=== PATIENT | male | born 1935 | race Caucasian/White ===

== ENCOUNTER 2020-12-04 17:41 | Inpatient (IN) ==
[2020-12-04 19:35] LABS: Basophils # (auto) 0.02 K/uL (0-0.2); Basophils % (auto) 0.2 %; Eosinophils # (auto) 0.19 K/uL (0-0.5); Hemoglobin 12.8 g/dL (14.0-18.0); Immature Granulocytes # (auto) 0.04 K/uL (0.00-0.02); Immature Granulocytes % (auto) 0.4 %; Lymphocytes # (auto) 1.78 K/uL (1.2-3.4); Lymphocytes % (auto) 18.9 %; Mean Corpuscular Hemoglobin 30.5 pg (25-34); Mean Corpuscular Hgb Conc 32.8 g/dL (32-36); Mean Corpuscular Volume 92.9 fL (80-100); Mean Platelet Volume 11.1 fL (7.4-10.4); Monocytes # (auto) 0.88 K/uL (0.11-0.59); Monocytes % (auto) 9.4 %; Neutrophils # (auto) 6.49 K/uL (1.4-6.5); Neutrophils % (auto) 69.1 %; Platelet Count 205 K/uL (130-400); RDW Coefficient of Variation 13.7 % (11.5-14.5)
[2020-12-04 19:46] LABS: Partial Thromboplastin Ratio 1.1; Partial Thromboplastin Time 27.8 Seconds (21.0-31.0); Prothrombin Time 10.6 Seconds (9.0-12.0)
[2020-12-04 19:55] LABS: Alanine Aminotransferase 34 U/L (12-78); Albumin Level 3.8 gm/dl (3.4-5.0); Aspartate Aminotransferase 26 U/L (15-37); BUN Creatinine Ratio 17.1 (10-20); Blood Urea Nitrogen 22 mg/dl (7-18); Calcium 8.2 mg/dl (8.5-10.1); Carbon Dioxide 25 mmol/L (21-32); Chloride 105 mmol/L (98-107); Creatinine Clr Calc Pharmacy 43.1 ml/min; Est GFR (African American) 57.3 ml/min; Est GFR (Non-African American) 49.4 ml/min; Glucose 144 mg/dl (70-99); Potassium 3.6 mmol/L (3.5-5.1); Sodium 137 mmol/L (136-145)
[2020-12-04 19:59] LABS: Albumin Globulin Ratio 0.9 (0.9-2); Alkaline Phosphatase 161 U/L (45-117); Bilirubin,Total 0.7 mg/dl (0.2-1); Globulin 4.1 gm/dl (2.5-4.0); Total Protein 7.9 gm/dl (6.4-8.2); Troponin I < 0.015 ng/ml (0-0.045)
[2020-12-04] MEDS ORDERED: hydrALAZINE HCL 20 MG/ML VIAL IV STA ×2 (21:05→22:32)
[2020-12-04 21:31] LABS: Thyroid Stimulating Hormone 1.79 uIu/ml (0.300-4.500)
[2020-12-04 21:36] LABS: Appearance Urine Clear (Clear); Bacteria Urine Automated Negative (Negative); Bilirubin Urine Negative (Negative); Blood Urine Trace (Negative); Cast Urine Automated 0 /lpf (0-5); Color Urine Yellow; Glucose Urine UA Negative (Negative); Ketones Urine Negative (Negative); Leukocyte Esterase Urine 2+ (Negative); Nitrite Urine Negative (Negative); Protein Urine Trace (Negative); RBC Urine Automated 0-4 /hpf (0-4); Specific Gravity Urine 1.008 (1.000-1.030); Urobilinogen Urine Negative (Negative)
--- NOTE | 2020-12-04 21:39 | Emergency Department Note ---
Impression & Plan Hypertensive urgency, Bilateral hip pain ED Provider Note NAME: MARY STOLL AGE: 85 SEX: M : 1935 ARRIVES VIA: Ambulance INFORMANT: [Patient][family] ED PROVIDER(S): [Jefe Trevizo MD] CHIEF COMPLAINT: Hypertension HISTORY OF PRESENT ILLNESS: The patient is an 85-year-old male presents to the ED with high blood pressure. [place] and the pressure was high. The patient states that he was at his doctor's office 2 weeks ago, his pressure was okay. He is taking all his blood pressure medications as prescribe d. Patient complains of years of bilateral hip pain. The pain is present with ambulation and activity and better with rest. [place] was in some discomfort because of his walking. He thought maybe the pain caused the blood pressure to be higher. There has been no cough or congestion. No shortness of breath. He has no headache, no one-sided weakness, no urinary complaints. Because his blood pressure was persistently [place], he was sent by ambulance for evaluation. REVIEW OF SYSTEMS: See HPI for pertinent positives and negatives. A total of ten systems were reviewed and were otherwise negative. PMHx/PSHx: See Below SOCIAL HISTORY: See Below. PHYSICAL EXAM: GENERAL: Patient is in no acute distress. HEENT: No acute trauma, normocephalic atraumatic, mucous membranes moist, no nasal congestion, no scleral icterus. NECK: No stridor, no adenopathy, no meningismus, trachea is midline. LUNGS: Clear to auscultation bilaterally, no wheeze, no rhonchi, breath sounds equal. HEART: Without murmurs gallops or rubs, regular rate and rhythm. ABDOMEN: Soft, nontender, bowel sounds positive, no hernias, no peritonitis. EXTREMITIES: No cyanosis, moderate bilateral pedal edema, full range of motion of all the joints without pain or difficulty, no signs for acute trauma. NEUROLOGIC: Oriented x 3, no acute motor or sensory deficits, no focal weakness. SKIN: No rash, no jaundice, no diaphoresis. DIFFERENTIAL DIAGNOSIS: Essential hypertension, medication noncompliance, pain response, renal failure, UTI, thyroid disorder, cardiac ischemia, among others. EMERGENCY DEPARTMENT COURSE/PROCEDURES: ECG: Indication was hypertension. The ECG shows a normal sinus rhythm with a rate of 64. There is no ST elevation, no PVCs. The QTc is 418. Continuous Cardiac Monitoring: An order was placed for continuous cardiac monitoring. The monitor shows a rate of 68 with normal sinus rhythm. MEDICAL DECISION MAKING: There is no leukocytosis. A mild anemia was present. There was a normal platelet count. No coagulopathy. No significant electrolyte abnormality or kidney failure. No concerning liver enzyme elevation. The patient appeared to be in a euthyroid state. ECG shows a sinus rhythm, there was no acute ischemic change. Cardiac enzyme testing x1 is not consistent with acute cardiac injury. Urinalysis does not show infection. Covid testing returned negative. Pelvis film does show some hip arthritis, no fractures. Chest film does not show CHF or pneumonia. Cardiomegaly was seen. The patient presents with an elevated blood pressure. He does take his blood pressure medications as prescribed. He was given IV hydralazine. A second dose of IV hydralazine was administered. He was given a dose of IV labetalol. His blood pressure remained elevated. I do think the patient deserves a hospital stay. His blood pressure is quite high despite 3 doses of IV medication. Further blood pressure control is req uired here in the hospital. He may need some medication adjustments as an outpatient. I do not think discharge is feasible this evening. I spoke to the patient and case management. The on-call hospitalist was consulted. Past Med/Surg History Medical History Hypertension Social History Smoking Status: Never smoker Feels Safe at Home: Yes Allergies Allergies Allergy/AdvReac Type Severity Reaction Status Date / Time bee venom protein (honey bee) Allergy Unknown Anaphylaxis Verified 12/04/20 23:59 Home Meds Home Medications Medication Instructions Recorded Confirmed allopurinol 100 mg tablet 100 mg PO DAILY 12/05/20 12/05/20 aspirin 81 mg tablet,delayed 162 mg PO QAM 12/05/20 12/05/20 release atorvastatin 80 mg tablet 80 mg PO QPM 12/05/20 12/05/20 carvedilol 25 mg tablet 25 mg PO BID 12/05/20 12/05/20 clonidine HCl 0.1 mg tablet 0.1 mg PO BID 12/05/20 12/05/20 insulin aspart U-100 100 unit/mL 4 unit SUBCUT BID 12/05/20 12/05/20 (3 mL) subcutaneous pen (Novolog Flexpen U-100 Insulin aspart) insulin glargine 100 unit/mL (3 20 unit SUBCUT HS 12/05/20 12/05/20 mL) subcutaneous pen (Lantus Solostar U-100 Insulin) meclizine 25 mg tablet 25 mg PO TID PRN 12/05/20 12/05/20 torsemide 20 mg tablet 20 mg PO BID 12/05/20 12/05/20 Results & Data (ED) Vital Signs Vital Signs - 24 hr 12/04/20 17:51 12/04/20 19:14 12/04/20 20:43 Temperature 37.2 C Temperature Source Temporal Artery Scan Pulse Rate 69 68 Pulse Rate [Finger] 70 Respiratory Rate 18 20 20 Respiratory Effort / Characteristics Non-Labored Respiratory Depth Normal Blood Pressure 255/105 H Blood Pressure [Left Arm] Blood Pressure [Right Arm] 258/110 H Blood Pressure Mean 155 Blood Pressure Mean [Left Arm] Blood Pressure Mean [Right Arm] 159 Blood Pressure Position [Left Arm] Blood Pressure Position [Right Arm] Pulse Oximetry 95 99 98 Oxygen Delivery Method Room Air Room Air Sepsis Recent Fever Within 48 Hours No Sepsis New/Unexplained Change in Mental Status No Sepsis Action Taken by Nursing No Action Required 12/04/20 20:44 12/04/20 22:02 12/05/20 00:55 Temperature Temperature Source Pulse Rate 78 Pulse Rate [Finger] 68 Respiratory Rate 20 21 Respiratory Effort / Characteristics Respiratory Depth Blood Pressure 195/81 H Blood Pressure [Left Arm] 264/112 H Blood Pressure [Right Arm] 204/110 H 230/84 H Blood Pressure Mean 119 Blood Pressure Mean [Left Arm] 162 Blood Pressure Mean [Right Arm] 141 132 Blood Pressure Position [Left Arm] Sitting Blood Pressure Position [Right Arm] Sitting Sitting Pulse Oximetry 98 96 Oxygen Delivery Method Room Air Room Air Sepsis Recent Fever Within 48 Hours Sepsis New/Unexplained Change in Mental Status Sepsis Action Taken by [facility] Medications Current Medication List: was personally reviewed by me Laboratory Data Attestation: I reviewed the patient's lab results. Result diagrams: 12/04/20 19:15 12/04/20 19:15 Lab Results 0812/04/20 12/04/20 Range/Units 19:15 19:15 19:15 WBC 9.40 (4.8-10.8) K/uL RBC 4.20 L (4.7-6.1) M/uL Hgb 12.8 L (14.0-18.0) g/dL Hct 39.0 L (42-52) % MCV 92.9 (80-100) fL MCH 30.5 (25-34) pg MCHC 32.8 (32-36) g/dL RDW Std Deviation 46.0 (36.4-46.3) fL RDW Coeff of Dulce Maria 13.7 (11.5-14.5) % Plt Count 205 (130-400) K/uL MPV 11.1 H (7.4-10.4) fL Immature Gran % (Auto) 0.4 % Neut % (Auto) 69.1 % Lymph % (Auto) 18.9 % Coleman % (Auto) 9.4 % Eos % (Auto) 2.0 % Baso % (Auto) 0.2 % Neut # (Auto) 6.49 (1.4-6.5) K/uL Lymph # (Auto) 1.78 (1.2-3.4) K/uL Coleman # (Auto) 0.88 H (0.11-0.59) K/uL Eos # (Auto) 0.19 (0-0.5) K/uL Baso # (Auto) 0.02 (0-0.2) K/uL Immature Gran # (Auto) 0.04 H (0.00-0.02) K/uL PT 10.6 (9.0-12.0) Seconds INR 1.0 (0.9-1.1) APTT 27.8 (21.0-31.0) Seconds PTT Ratio 1.1 Sodium 137 (136-145) mmol/L Potassium 3.6 (3.5-5.1) mmol/L Chloride 105 (98-107) mmol/L Carbon Dioxide 25 (21-32) mmol/L Anion Gap 7.0 (3-11) BUN 22 H (7-18) mg/dl Creatinine 1.30 (0.6-1.4) mg/dl Est Cr Clr Drug Dosing 43.1 ml/min Est GFR ( Amer) 57.3 ml/min Est GFR (Non-Af Amer) 49.4 ml/min BUN/Creatinine Ratio 17.1 (10-20) Glucose 144 H (70-99) mg/dl POC Glucose (70-99) mg/dl Calcium 8.2 L (8.5-10.1) mg/dl Magnesium (1.8-2.4) mg/dl Total Bilirubin 0.7 (0.2-1) mg/dl AST 26 (15-37) U/L ALT 34 (12-78) U/L Alkaline Phosphatase 161 H (45-117) U/L Troponin I < 0.015 (0-0.045) ng/ml Total Protein 7.9 (6.4-8.2) gm/dl Albumin 3.8 (3.4-5.0) gm/dl Globulin 4.1 H (2.5-4.0) gm/dl Albumin/Globulin Ratio 0.9 (0.9-2) TSH (0.300-4.500) uIu/ml Urine Color Urine Appearance (Clear) Urine pH (4.5-7.5) Ur Specific [place] (1.000-1.030) Urine Protein (Negative) Urine Glucose (UA) (Negative) Urine Ketones (Negative) Urine Blood (Negative) Urine Nitrite (Negative) Urine Bilirubin (Negative) Urine Urobilinogen (Negative) Ur Leukocyte Esterase (Negative) Urine WBC (Auto) (0-5) /hpf Urine RBC (Auto) (0-4) /hpf U Hyaline Cast (Auto) (0-5) /lpf U Epithel Cells (Auto) (0-5) /lpf Urine Bacteria (Auto) (Negative) COVID-19 Eval Order SARS-CoV-2 (PCR) (Negative) 12/04/20 12/04/20 12/04/20 Range/Units 19:15 21:19 22:17 WBC (4.8-10.8) K/uL RBC (4.7-6.1) M/uL Hgb (14.0-18.0) g/dL Hct (42-52) % MCV (80-100) fL MCH (25-34) pg MCHC (32-36) g/dL RDW Std Deviation (36.4-46.3) fL RDW Coeff of Dulce Maria (11.5-14.5) % Plt Count (130-400) K/uL MPV (7.4-10.4) fL Immature Gran % (Auto) % Neut % (Auto) % Lymph % (Auto) % Coleman % (Auto) % Eos % (Auto) % Baso % (Auto) % Neut # (Auto) (1.4-6.5) K/uL Lymph # (Auto) (1.2-3.4) K/uL [place] # (Auto) (0.11-0.59) K/uL Eos # (Auto) (0-0.5) K/uL Baso # (Auto) (0-0.2) K/uL Immature Gran # (Auto) (0.00-0.02) K/uL PT (9.0-12.0) Seconds INR (0.9-1.1) APTT (21.0-31.0) Seconds PTT Ratio Sodium (136-145) mmol/L Potassium (3.5-5.1) mmol/L Chloride (98-107) mmol/L Carbon Dioxide (21-32) mmol/L Anion Gap (3-11) BUN (7-18) mg/dl Creatinine (0.6-1.4) mg/dl Est Cr Clr Drug Dosing ml/min Est GFR ( Amer) ml/min Est GFR (Non-Af Amer) ml/min BUN/Creatinine Ratio (10-20) Glucose (70-99) mg/dl POC Glucose 122 H (70-99) mg/dl Calcium (8.5-10.1) mg/dl Magnesium 2.2 (1.8-2.4) mg/dl Total Bilirubin (0.2-1) mg/dl AST (15-37) U/L ALT (12-78) U/L Alkaline Phosphatase (45-117) U/L Troponin I (0-0.045) ng/ml Total Protein (6.4-8.2) gm/dl Albumin (3.4-5.0) gm/dl Globulin (2.5-4.0) gm/dl Albumin/Globulin Ratio (0.9-2) TSH 1.790 (0.300-4.500) uIu/ml Urine Color Yellow Urine Appearance Clear (Clear) Urine pH 6.0 (4.5-7.5) Ur Specific [place] 1.008 (1.000-1.030) Urine Protein Trace H (Negative) Urine Glucose (UA) Negative (Negative) Urine Ketones Negative (Negative) Urine Blood Trace H (Negative) Urine Nitrite Negative (Negative) Urine Bilirubin Negative (Negative) Urine Urobilinogen Negative (Negative) Ur Leukocyte Esterase 2+ H (Negative) Urine WBC (Auto) 5-10 H (0-5) /hpf Urine RBC (Auto) 0-4 (0-4) /hpf U Hyaline Cast (Auto) 0 (0-5) /lpf U Epithel Cells (Auto) 5-10 H (0-5) /lpf Urine Bacteria (Auto) Negative (Negative) COVID-19 Eval Order SARS-CoV-2 (PCR) (Negative) 12/04/20 12/04/20 Range/Units 23:59 23:59 WBC (4.8-10.8) K/uL RBC (4.7-6.1) M/uL Hgb (14.0-18.0) g/dL Hct (42-52) % MCV (80-100) fL MCH (25-34) pg MCHC (32-36) g/dL RDW Std Deviation (36.4-46.3) fL RDW Coeff of Dulce Maria (11.5-14.5) % Plt Count (130-400) K/uL MPV (7.4-10.4) fL Immature Gran % (Auto) % Neut % (Auto) % Lymph % (Auto) % Coleman % (Auto) % Eos % (Auto) % Baso % (Auto) % Neut # (Auto) (1.4-6.5) K/uL Lymph # (Auto) (1.2-3.4) K/uL Coleman # (Auto) (0.11-0.59) K/uL Eos # (Auto) (0-0.5) K/uL Baso # (Auto) (0-0.2) K/uL Immature Gran # (Auto) (0.00-0.02) K/uL PT (9.0-12.0) Seconds INR (0.9-1.1) APTT (21.0-31.0) Seconds PTT Ratio Sodium (136-145) mmol/L Potassium (3.5-5.1) mmol/L Chloride (98-107) mmol/L Carbon Dioxide (21-32) mmol/L Anion Gap (3-11) BUN (7-18) mg/dl Creatinine (0.6-1.4) mg/dl Est Cr Clr Drug Dosing ml/min Est GFR ( Amer) ml/min Est GFR (Non-Af Amer) ml/min BUN/Creatinine Ratio (10-20) Glucose (70-99) mg/dl POC Glucose (70-99) mg/dl Calcium (8.5-10.1) mg/dl Magnesium (1.8-2.4) mg/dl Total Bilirubin (0.2-1) mg/dl AST (15-37) U/L ALT (12-78) U/L Alkaline Phosphatase (45-117) U/L Troponin I (0-0.045) ng/ml Total Protein (6.4-8.2) gm/dl Albumin (3.4-5.0) gm/dl Globulin (2.5-4.0) gm/dl Albumin/Globulin Ratio (0.9-2) TSH (0.300-4.500) uIu/ml Urine Color Urine Appearance (Clear) Urine pH (4.5-7.5) Ur Specific [place] (1.000-1.030) Urine Protein (Negative) Urine Glucose (UA) (Negative) Urine Ketones (Negative) Urine Blood (Negative) Urine Nitrite (Negative) Urine Bilirubin (Negative) Urine Urobilinogen (Negative) Ur Leukocyte Esterase (Negative) Urine WBC (Auto) (0-5) /hpf Urine RBC (Auto) (0-4) /hpf U Hyaline Cast (Auto) (0-5) /lpf U Epithel Cells (Auto) (0-5) /lpf Urine Bacteria (Auto) (Negative) COVID-19 Eval Order Covid19 at [facility] SARS-CoV-2 (PCR) NEGATIVE (Negative) Administered Medications Discontinued Medications Clonidine HCl (Clonidine Hcl 0.1 Mg Tab) 0.1 mg PO NOW STA Stop: 12/05/20 00:38 Last Admin: 12/05/20 00:54 Dose: 0.1 mg Documented by: [id number] Hydralazine HCl (Hydralazine Hcl 20 Mg/Ml Vial) 10 mg IV NOW STA Stop: 12/04/20 21:06 Last Admin: 12/04/20 21:17 Dose: 10 mg Documented by: [id number] Hydralazine HCl (Hydralazine Hcl 20 Mg/Ml Vial) 10 mg IV NOW STA Stop: 12/04/20 22:33 Last Admin: 12/04/20 22:36 Dose: 10 mg Documented by: [id number] Calcium Gluconate () 1,000 mg in 60 mls @ 240 mls/hr IV ONE STA Stop: 12/05/20 00:50 Last Infusion: 12/05/20 01:10 Dose: 0 mls/hr Documented by: [id number] Admin: 12/05/20 00:54 Dose: 240 mls/hr Documented by: [id number] Labetalol HCl (Labetalol Hcl Iv 5 Mg/Ml 20ml) 10 mg IV NOW STA Stop: 12/04/20 23:29 Last Admin: 12/04/20 23:54 Dose: 10 mg Documented by: [id number] Cosigned by: [id number] Torsemide (Torsemide 10 Mg Tab) 20 mg PO NOW STA Stop: 12/05/20 00:51 Last Admin: 12/05/20 01:10 Dose: 20 mg Documented by: [id number] Imaging Data Attestation: I personally reviewed and interpreted this imaging study as foll ows: My Impression: Chest x-ray: There is cardiomegaly, no CHF or pneumonia per my review. Pelvis film: There is some hip arthritis, no fractures seen. Discharge Plan Visit Data Chief Complaint: Hypertension Stated Complaint: HTN ED Provider: Jefe Trevizo Discharge Problem: Hypertensive urgency, Bilateral hip pain Patient Disposition: Admitted As Inpatient Condition: Fair Forms Stand Alone Forms: My [facility] Prescriptions Prescriptions: No Action allopurinol 100 mg tablet 100 mg PO DAILY RF: 0 Lantus Solostar U-100 Insulin 100 unit/mL (3 mL) insulin pen 20 unit SUBCUT HS RF: 0 atorvastatin 80 mg tablet 80 mg PO QPM RF: 0 carvedilol 25 mg tablet 25 mg PO BID RF: 0 clonidine HCl 0.1 mg tablet 0.1 mg PO BID RF: 0 torsemide 20 mg tablet 20 mg PO BID RF: 0 insulin aspart U-100 [Novolog Flexpen U-100 Insulin] 100 unit/mL (3 mL) insulin pen 4 unit SUBCUT BID RF: 0 meclizine 25 mg tablet 25 mg PO TID PRN (Reason: Dizziness) RF: 0 aspirin [Aspir-Low] 81 mg Tablet,Delayed Release (Dr/Ec) 162 mg PO QAM RF: 0 Referrals Referrals: Wendy Jeffery DO [Primary Care Provider] -
[2020-12-04] MEDS ORDERED: LABETALOL HCL IV 5 MG/ML 20ML IV STA (23:28)
[2020-12-04 23:58] LABS: Magnesium 2.2 mg/dl (1.8-2.4)
--- NOTE | 2020-12-05 00:27 | History & Physical Report ---
Date of Service December 05, 2020 Assessment & Plan (1) Hypertensive urgency: Plan: ? Compliance (Patient somewhat apathetic during encounter while discussing medical issues. ? Poor insight on chronic medical conditions) Rule out underlying sleep disordered breathing chronic diastolic heart failure (EF 60%, TTE 2019), at baseline hx CAD status post CABG hyperlipidemia, on statin Rx DM2 insulin requiring, reasonable control as of recent hemoglobin A1c of 7.4 Ju ne 2020 CRI, creatinine at baseline past tobacco abuse OBS PCU Titrate home BP meds Cardiology consult if without improvement Outpatient sleep study Basal insulin, ISS BG goal 1 10-1 40, carb count coverage PT OT eval DVT prophylaxis. Lovenox subcu Full code Patient stepdaughter requesting updates from providers. (Pop Rachelle Saini, contact #[phone].) Text document was generated using meets voice recognition software. It may contain grammatical or spelling errors. Kindly contact undersigned for clarification of any documentation item in question. History of Present Illness Chief Complaint: High blood pressure Primary Care Provider: Wendy Jeffery DO CataractsHistory obtained from patient, family, and records. Medical history significant for chronic diastolic heart failure (EF 60%, TTE 2019), CAD status post CABG, hypertension, hyperlipidemia, DM2 insulin requiring, CRI (baseline creatinine 1.3), BPH, osteoarthritis, past tobacco abuse. Patient casually had his blood pressure checked at the [facility] yesterday. SBP noted to be 200s. Usual SBP 160s as per patient/family. Patient has a blood pressure machine at home but does not check his blood pressure. Patient denies headache, chest pain, S OB, abdominal pain, blurred vision. Eyes somewhat bloodshot as per stepdaughter. Patient claims to be compliant with home medications. Usual hip pain. No inordinate OTC NSAID intake. No unusual stress at home. Patient snores soundly during sleep, occasional gasping noted. No prior sleep studies. [place] 220[place]. Patient directed to the ER for evaluation. SBP 260s upon arrival at the ER. IV Hydralazine doses and Labetalol administered at the ER. SBP currently 190s. 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 Allergies Allergy/AdvReac Type Severity Reaction Status Date / Time bee venom protein (honey bee) Allergy Unknown Anaphylaxis Verified 12/04/20 23:59 amlodipine AdvReac Mild swelling Verified 12/05/20 01:46 valsartan AdvReac Mild swelling Verified 12/05/20 01:46 haemophilus b polysac AdvReac Unknown Verified 12/05/20 01:49 conj-tetanus [From Hiberix (PF)] Haemophilus B polysaccharide AdvReac Unknown Verified 12/05/20 01:49 conj w [From Hiberix (PF)] Influenza Virus Vaccines AdvReac Unknown Verified 12/05/20 01:47 nifedipine AdvReac Unknown Verified 12/05/20 01:47 Home Medications Medication Instructions Recorded Confirmed Type allopurinol 100 mg tablet 100 mg PO DAILY 12/05/20 12/05/20 History aspirin 81 mg tablet,delayed 162 mg PO QAM 12/05/20 12/05/20 History release atorvastatin 80 mg tablet 80 mg PO QPM 12/05/20 12/05/20 History carvedilol 25 mg tablet 25 mg PO BID 12/05/20 12/05/20 History clonidine HCl 0.1 mg tablet 0.1 mg PO BID 12/05/20 12/05/20 History insulin aspart U-100 100 unit/mL 4 unit SUBCUT BID 12/05/20 12/05/20 History (3 mL) subcutaneous pen (Novolog Flexpen U-100 Insulin aspart) insulin glargine 100 unit/mL (3 20 unit SUBCUT HS 12/05/20 12/05/20 History mL) subcutaneous pen (Lantus Solostar U-100 Insulin) meclizine 25 mg tablet 25 mg PO TID PRN 12/05/20 12/05/20 History torsemide 20 mg tablet 20 mg PO BID 12/05/20 12/05/20 History Past Med/Surg History Medical History Hypertension Social History Smoking Status: Former smoker Hx Alcohol Use: No Hx Substance Use: No Preferred Language: Bulgarian Communication Ability: Effective Director Pediatric Required: No Beliefs That Will Affect Care: None Current Living Situation: Family Other Information That Helps Us Care for You: No Feels Safe at Home: Yes Safety Concerns: Feels Safe At This Time Assistive Devices: None Review of Systems Review of Systems: As per HPI, all 10 systems reviewed, all other ROS negative Physical Exam Physical Exam: GENERAL: Comfortable, morbidly obese, looks younger for stated age, no respiratory distress SKIN: Normal color, warm HEENT: Alopecia, [place] palpebral conjunctivae, no ptosis, moist buccal mucosa NECK : Supple, short neck, no tenderness CHEST : Decreased breath sounds, no tenderness HEART : RRR, no obvious murmurs ABDOMEN: Some distention, nontender EXTREMITIES : no LE swelling/tenderness, no other conspicuous deformities noted NEUROLOGIC : Coherent, no facial asymmetry, no other gross focality Results & Data Results & Data ([facility]) Vital Signs (Past 12 Hours) Vital Signs Temp Pulse Pulse Resp BP BP BP 12/04/20 22:02 230/84 H 12/04/20 20:44 68 20 264/112 H 204/110 H 12/04/20 20:43 68 20 12/04/20 19:14 70 20 258/110 H 12/04/20 17:51 37.2 C 69 18 255/105 H Pulse Ox 12/04/20 22:02 12/04/20 20:44 98 12/04/20 20:43 98 12/04/20 19:14 99 12/04/20 17:51 95 Laboratory Results Laboratory Results WBC 9.40 K/uL (4.8-10.8) 12/04/20 19:15 RBC 4.20 M/uL (4.7-6.1) L 12/04/20 19:15 Hgb 12.8 g/dL (14.0-18.0) L 12/04/20 19:15 Hct 39.0 % (42-52) L 12/04/20 19:15 MCV 92.9 fL (80-100) 12/04/20 19:15 MCH 30.5 pg (25-34) 12/04/20 19:15 MCHC 32.8 g/dL (32-36) 12/04/20 19:15 RDW Std Deviation 46.0 fL (36.4-46.3) 12/04/20 19:15 RDW Coeff of Dulce Maria 13.7 % (11.5-14.5) 12/04/20 19:15 Plt Count 205 K/uL (130-400) 12/04/20 19:15 MPV 11.1 fL (7.4-10.4) H 12/04/20 19:15 Immature Gran % (Auto) 0.4 % 12/04/20 19:15 Neut % (Auto) 69.1 % 12/04/20 19:15 Lymph % (Auto) 18.9 % 12/04/20 19:15 [place] % (Auto) 9.4 % 12/04/20 19:15 Eos % (Auto) 2.0 % 12/04/20 19:15 Baso % (Auto) 0.2 % 12/04/20 19:15 Neut # (Auto) 6.49 K/uL (1.4-6.5) 12/04/20 19:15 Lymph # (Auto) 1.78 K/uL (1.2-3.4) 12/04/20 19:15 [place] # (Auto) 0.88 K/uL (0.11-0.59) H 12/04/20 19:15 Eos # (Auto) 0.19 K/uL (0-0.5) 12/04/20 19:15 Baso # (Auto) 0.02 K/uL (0-0.2) 12/04/20 19:15 Immature Gran # (Auto) 0.04 K/uL (0.00-0.02) H 12/04/20 19:15 PT 10.6 Seconds (9.0-12.0) 12/04/20 19:15 INR 1.0 (0.9-1.1) 12/04/20 19:15 APTT 27.8 Seconds (21.0-31.0) 12/04/20 19:15 PTT Ratio 1.1 12/04/20 19:15 Sodium 137 mmol/L (136-145) 12/04/20 19:15 Potassium 3.6 mmol/L (3.5-5.1) 12/04/20 19:15 Chloride 105 mmol/L (98-107) 12/04/20 19:15 Carbon Dioxide 25 mmol/L (21-32) 12/04/20 19:15 Anion Gap 7.0 (3-11) 12/04/20 19:15 BUN 22 mg/dl (7-18) H 12/04/20 19:15 Creatinine 1.30 mg/dl (0.6-1.4) 12/04/20 19:15 Est Cr Clr Drug Dosing 43.1 ml/min 12/04/20 19:15 Est GFR ( Amer) 57.3 ml/min 12/04/20 19:15 Est GFR (Non-Af Amer) 49.4 ml/min 12/04/20 19:15 BUN/Creatinine Ratio 17.1 (10-20) 12/04/20 19:15 Glucose 144 mg/dl (70-99) H 12/04/20 19:15 POC Glucose 122 mg/dl (70-99) H 12/04/20 22:17 Calcium 8.2 mg/dl (8.5-10.1) L 12/04/20 19:15 Magnesium 2.2 mg/dl (1.8-2.4) 12/04/20 19:15 Total Bilirubin 0.7 mg/dl (0.2-1) 12/04/20 19:15 AST 26 U/L (15-37) 12/04/20 19:15 ALT 34 U/L (12-78) 12/04/20 19:15 Alkaline Phosphatase 161 U/L (45-117) H 12/04/20 19:15 Troponin I < 0.015 ng/ml (0-0.045) 12/04/20 19:15 Total Protein 7.9 gm/dl (6.4-8.2) 12/04/20 19:15 Albumin 3.8 gm/dl (3.4-5.0) 12/04/20 19:15 Globulin 4.1 gm/dl (2.5-4.0) H 12/04/20 19:15 Albumin/Globulin Ratio 0.9 (0.9-2) 12/04/20 19:15 TSH 1.790 uIu/ml (0.300-4.500) 12/04/20 19:15 Urine Color Yellow 12/04/20 21:19 Urine Appearance Clear (Clear) 12/04/20 21:19 Urine pH 6.0 (4.5-7.5) 12/04/20 21:19 Ur Specific [place] 1.008 (1.000-1.030) 12/04/20 21:19 Urine Protein Trace (Negative) H 12/04/20 21:19 Urine Glucose (UA) Negative (Negative) 12/04/20 21:19 Urine Ketones Negative (Negative) 12/04/20 21:19 Urine Blood Trace (Negative) H 12/04/20 21:19 Urine Nitrite Negative (Negative) 12/04/20 21:19 Urine Bilirubin Negative (Negative) 12/04/20 21:19 Urine Urobilinogen Negative (Negative) 12/04/20 21:19 Ur Leukocyte Esterase 2+ (Negative) H 12/04/20 21:19 Urine WBC (Auto) 5-10 /hpf (0-5) H 12/04/20 21:19 Urine RBC (Auto) 0-4 /hpf (0-4) 12/04/20 21:19 U Hyaline Cast (Auto) 0 /lpf (0-5) 12/04/20 21:19 U Epithel Cells (Auto) 5-10 /lpf (0-5) H 12/04/20 21:19 Urine Bacteria (Auto) Negative (Negative) 12/04/20 21:19 COVID-19 Eval Order Covid19 at [facility] 12/04/20 23:59 Diagnostic Findings Chest x-ray as per my interpretation atelectasis, cardiomegaly, minimal congestion EKG as per my interpretation : Rate 65, NSR, LAD, LAFB, no ischemia
[2020-12-05] MEDS ORDERED: CALCIUM GLUCONATE 1,000 MG/60 ML BAG IV STA (00:36)
[2020-12-05] MEDS ORDERED: cloNIDine HCL 0.1 MG TAB PO STA (00:37)
[2020-12-05] MEDS ORDERED: TORSEMIDE 10 MG TAB PO STA (00:50)
[2020-12-05] MEDS ORDERED: CARBOHYDRATES FOR HYPOGLYCEMIA PO PRN (02:45)
[2020-12-05] MEDS ORDERED: PROMETHAZINE HCL 12.5 MG in SODIUM CHLORIDE 0.9% 50 ML IV PRN (02:45)
[2020-12-05] MEDS ORDERED: GLUCOSE 10 TABS/TUBE PO PRN (02:45)
[2020-12-05] MEDS ORDERED: traMADol HCL 50 MG TABLET PO PRN (02:45)
[2020-12-05] MEDS ORDERED: DEXTROSE 50% 50 ML SYRINGE IV PRN (02:45)
[2020-12-05] MEDS ORDERED: GLUCAGON FOR INJ 1 MG VIAL SQ PRN (02:45)
[2020-12-05] MEDS ORDERED: GLUCOSE 40% GEL 15 GM TUBE PO PRN (02:45)
[2020-12-05] MEDS ORDERED: ACETAMINOPHEN 325 MG TAB PO PRN (02:45)
[2020-12-05] MEDS: INSULIN ASPART 100 UNITS/ML 3 ML PEN SC SCH ×5 (04:10→20:06)
[2020-12-05] MEDS: carvediloL 25 MG TAB PO SCH ×2 (04:30→20:21)
[2020-12-05 06:24] LABS: Basophils # (auto) 0.02 K/uL (0-0.2); Basophils % (auto) 0.2 %; Eosinophils # (auto) 0.17 K/uL (0-0.5); Eosinophils % (auto) 1.9 %; Hematocrit (blood only) 38.3 % (42-52); Hemoglobin 12.6 g/dL (14.0-18.0); Immature Granulocytes # (auto) 0.04 K/uL (0.00-0.02); Immature Granulocytes % (auto) 0.4 %; Lymphocytes # (auto) 1.87 K/uL (1.2-3.4); Mean Corpuscular Hemoglobin 30.5 pg (25-34); Mean Corpuscular Hgb Conc 32.9 g/dL (32-36); Mean Corpuscular Volume 92.7 fL (80-100); Monocytes # (auto) 0.81 K/uL (0.11-0.59); Monocytes % (auto) 9.1 %; Neutrophils % (auto) 67.4 %; Platelet Count 189 K/uL (130-400); RDW Coefficient of Variation 13.7 % (11.5-14.5); RDW Standard Deviation 46.1 fL (36.4-46.3); Red Blood Count 4.13 M/uL (4.7-6.1); White Blood Count 8.91 K/uL (4.8-10.8)
[2020-12-05 06:51] LABS: BUN Creatinine Ratio 18.2 (10-20); Calcium 8.1 mg/dl (8.5-10.1); Est GFR (African American) 76.8 ml/min; Est GFR (Non-African American) 66.2 ml/min; Potassium 3.5 mmol/L (3.5-5.1)
--- NOTE | 2020-12-05 08:01 | XRay Report ---
XR pelvis 1-2V routine CLINICAL HISTORY: Hip pain. COMPARISON: None FINDINGS: Incidental note is made of partially visualized lumbosacral spine hardware. No acute fract ure is identified within the pelvis or hips. There is mild bilateral hip osteoarthritis. Joint spaces are preserved. There is mild osteophytosis. IMPRESSION: 1. No acute fracture within the pelvis or hips. 2. Mild bilateral hip osteoarthritis. ACT 112: Negative or not required by law. Electronically signed by: Surinder Forman M.D. 12/05/2020 8:00 AM
--- NOTE | 2020-12-05 08:04 | XRay Report ---
XR chest 1V portable CLINICAL HISTORY: Hypertension. COMPARISON STUDY: Chest radiograph December 01, 2014. FINDINGS: Lung volumes are normal. There is no pneumothorax or pleural effusion. Cardiomegaly is note d. There are median sternotomy wires. Patient is mildly rotated. Minimal left basilar opacity favors atelectasis. There is no evidence for overt pulmonary edema. IMPRESSION: 1. Cardiomegaly. No evidence for overt pulmonary edema. 2. Lower lung interstitial thickening, similar to prior exam. ACT 112: Negative or not required by law. Electronically signed by: Surinder Forman M.D. 12/05/2020 8:02 AM
[2020-12-05] MEDS ORDERED: INSULIN GLARGINE SOLOSTAR 100 UNITS/ML 3 ML PEN SC SCH (09:00)
[2020-12-05] MEDS ORDERED: carvediloL 25 MG TAB PO SCH (09:00)
[2020-12-05] MEDS: TORSEMIDE 20 MG TAB PO SCH ×2 (09:37→18:59)
[2020-12-05] MEDS: ASPIRIN 81 MG ECTAB PO SCH (09:37)
[2020-12-05] MEDS: cloNIDine HCL 0.1 MG TAB PO SCH ×2 (09:37→20:22)
[2020-12-05] MEDS: allopurinoL 100 MG TAB PO SCH (09:37)
[2020-12-05] MEDS: INSULIN GLARGINE SOLOSTAR 100 UNITS/ML 3 ML PEN SC SCH (09:38)
[2020-12-05] MEDS: ENOXAPARIN INJ 40 MG/0.4 ML SYR SQ SCH (09:38)
[2020-12-05] MEDS ORDERED: NITROGLYCERIN 2% OINTMENT 30GM TUBE EXT ONE (17:17)
[2020-12-05] MEDS ORDERED: hydrALAZINE HCL 25 MG TAB PO STA (17:18)
--- NOTE | 2020-12-05 17:25 | Communication Note ---
Date of Service: December 05, 2020 The patient was seen and examined in emergency room He denies any symptoms though the blood pressure noted to be high at 204/96 He remained otherwise stable Additional medications for the blood pressure added and his labs and EKGs were noted Full progress note will be done tomorrow Dr Raghav Mercer
[2020-12-05] MEDS: ATORVASTATIN 40 MG TAB PO SCH (20:20)
[2020-12-05] MEDS ORDERED: hydrALAZINE HCL 25 MG TAB PO SCH (21:00)
[2020-12-06] MEDS: TORSEMIDE 20 MG TAB PO SCH ×2 (07:49→17:07)
[2020-12-06] MEDS: allopurinoL 100 MG TAB PO SCH (07:50)
[2020-12-06] MEDS: ASPIRIN 81 MG ECTAB PO SCH (07:50)
[2020-12-06] MEDS: cloNIDine HCL 0.1 MG TAB PO SCH ×2 (07:51→21:52)
[2020-12-06] MEDS: ENOXAPARIN INJ 40 MG/0.4 ML SYR SQ SCH (07:51)
[2020-12-06] MEDS: carvediloL 25 MG TAB PO SCH ×2 (07:51→21:51)
[2020-12-06] MEDS: INSULIN GLARGINE SOLOSTAR 100 UNITS/ML 3 ML PEN SC SCH (07:54)
[2020-12-06] MEDS: INSULIN ASPART 100 UNITS/ML 3 ML PEN SC SCH ×4 (09:11→21:52)
[2020-12-06] MEDS: hydrALAZINE TAB 50 MG TAB PO SCH ×2 (10:02→21:52)
[2020-12-06] MEDS ORDERED: POTASSIUM CHLORIDE CRTAB 20 MEQ TABCR PO STA (15:05)
--- NOTE | 2020-12-06 16:58 | Electrocardiogram Report ---
Test Reason : Blood Pressure : / mmHG Vent. Rate : 064 BPM Atrial Rate : 064 BPM P-R Int : 186 ms QRS Dur : 102 ms QT Int : 406 ms P-R-T Axes : 008 -12 020 degrees QTc Int : 418 ms Normal sinus rhythm Normal ECG When compared with ECG of 01-DEC-2014 17:18, No significant change was found Confirmed by Tima Brandon ([id number]) on 12/06/2020 4:58:03 PM Referred By: REFERRED SELF Confirmed By:Tima Brandon
--- NOTE | 2020-12-06 17:50 | Hospitalist Progress Note ---
Date of Service December 06, 2020 Assessment & Plan (1) Hypertensive urgency: Plan: Denies any symptoms with the high blood pressure It was noted on a routine checkup He was started with hydralazine 50 mg twice daily on top of his current medication He has been feeling better and the blood pressure is coming down Will need outpatient sleep study If the blood pressure remains around 160 or below he can be discharged tomorrow Chronic diastolic heart failure (EF 60%, TTE 2018), at baseline No signs and or symptoms of fluid overload Cardiology consult if condition deteriorates hx CAD status post CABG No acute cardiac symptoms Hyperlipidemia, on statin Rx Continue current treatment DM2 insulin requiring, reasonable control as of recent hemoglobin A1c of 7.13 September 2020 Continue SSI Basal insulin, ISS BG goal 1 10-1 40, carb count coverage CRI, creatinine at baseline Monitor PRP Past tobacco abuse PT OT eval DVT prophylaxis. Lovenox subcu Full code Patient stepdaughter requesting updates from providers. (Pop Rachelle Saini, contact #[phone].) Discussed with the daughter Admission and Anticipated Discharge Date Admission Date: December 05, 2020 Subjective 12/06/2020 The patient was seen and examined in telemetry unit He was admitted with very high blood pressure without any symptoms He denies any symptoms today and the blood pressure seems to be coming down Review of Systems Review of Systems: All systems reviewed and are unremarkable except as noted below Physical Exam Physical Exam: Lying in bed comfortably Constitutional: well developed, well nourished and + obese; not ill appearing Eyes: PERRL, conjunctivae normal, anicteric sclerae ENMT: external ear and nose normal, oropharynx normal Neck: trachea midline, no thyromegaly Respiratory: no respiratory distress and no cough Auscultation: lungs clear to auscultation bilaterally Cardiovascular: Rate/Rhythm: regular rate and regular rhythm; not tachycardic Heart Sounds: normal S1 and normal S2; no murmur Extremities: + edema (Trace to 1+ edema bilaterally) Gastrointestinal (Abdomen): normal bowel sounds, soft, nontender, no hepatosplenomegaly Musculoskeletal: No acute arthritis in any joint Neurologic: Alert, awake and oriented x3. No focal sensory no motor deficit appreciated Results & Data Results & Data ([facility]) Vital Signs (Past 12 Hours) Vital Signs Temp Pulse Resp BP BP Pulse Ox 12/06/20 15:17 36.5 C 65 20 178/82 H 96 12/06/20 11:45 36.5 C 62 16 165/80 H 98 12/06/20 10:08 62 14 149/79 H 12/06/20 07:55 36.9 C 62 19 194/87 H 93 12/06/20 06:39 37.0 C 71 20 225/92 H 96 Medications Administered Current Inpatient Medications Acetaminophen (Acetaminophen 325 Mg Tab) 650 mg PO Q4H PRN PRN Reason: Pain or Fever Stop: 01/04/21 02:44 Allopurinol (Allopurinol 100 Mg Tab) 100 mg PO DAILY GUILHERME Stop: 01/04/21 08:59 Last Admin: 12/06/20 07:50 Dose: 100 mg Documented by: Aspirin (Aspirin 81 Mg Ectab) 162 mg PO QAM GUILHERME Stop: 01/04/21 08:59 Last Admin: 12/06/20 07:50 Dose: 162 mg Documented by: Atorvastatin Calcium (Atorvastatin 40 Mg Tab) 80 mg PO QPM GUILHERME Stop: 01/04/21 20:59 Last Admin: 12/05/20 20:20 Dose: 80 mg Documented by: Carvedilol (Carvedilol 25 Mg Tab) 25 mg PO BID GUILHERME Stop: 01/04/21 03:59 Last Admin: 12/06/20 07:51 Dose: 25 mg Documented by: Clonidine HCl (Clonidine Hcl 0.1 Mg Tab) 0.1 mg PO BID GUILHERME Stop: 01/04/21 08:59 Last Admin: 12/06/20 07:51 Dose: 0.1 mg Documented by: Dextrose (Dextrose 50% 50 Ml Syringe) 25 - 50 ml IV UD PRN; Protocol PRN Reason: Hypoglycemia Protocol Stop: 01/04/21 02:44 Enoxaparin Sodium (Enoxaparin Inj 40 Mg/0.4 Ml Syr) 40 mg SQ QAM GUILHERME Stop: 01/04/21 08:59 Last Admin: 12/06/20 07:51 Dose: 40 mg Documented by: Glucagon (Glucagon For Inj 1 Mg Vial) 1 mg SQ UD PRN; Protocol PRN Reason: Hypoglycemia Protocol Stop: 01/04/21 02:44 Glucose (Glucose 10 Tabs/Tube) 4 - 8 tabs PO UD PRN; Protocol PRN Reason: Hypoglycemia Protocol Stop: 01/04/21 02:44 Glucose (Glucose 40% Gel 15 Gm Tube) 15 - 30 gm PO UD PRN; Protocol PRN Reason: Hypoglycemia Protocol Stop: 01/04/21 02:44 Hydralazine HCl (Hydralazine Tab 50 Mg Tab) 50 mg PO BID [facility] Stop: 01/05/21 08:59 Last Admin: 12/06/20 10:02 Dose: 50 mg Documented by: Promethazine HCl 12.5 mg/ (Sodium Chloride) 50.5 mls @ 202 mls/hr IV Q6H PRN PRN Reason: Nausea And Vomiting Stop: 01/04/21 02:44 Insulin Aspart (Insulin Aspart 100 Units/Ml 3 Ml Pen) 0 units SC ACHS GUILHERME Stop: 01/04/21 02:44 Last Admin: 12/06/20 17:06 Dose: 2 units Documented by: Insulin Glargine (Insulin Glargine Solostar 100 Units/Ml 3 Ml Pen) 10 units SC DAILY GUILHERME Stop: 01/04/21 08:59 Last Admin: 12/06/20 07:54 Dose: 10 units Documented by: Miscellaneous (Carbohydrates For Hypoglycemia ) 15 - 30 gm PO UD PRN PRN Reason: Hypoglycemia Protocol Stop: 01/04/21 02:44 Torsemide (Torsemide 20 Mg Tab) 20 mg PO BIDM [facility] Stop: 01/04/21 07:59 Last Admin: 12/06/20 17:07 Dose: 20 mg Documented by: Tramadol HCl (Tramadol Hcl 50 Mg Tablet) 25 - 50 mg PO Q4H PRN PRN Reason: Pain Stop: 01/04/21 02:44
[2020-12-06] MEDS ORDERED: NITROGLYCERIN 2% OINTMENT 30GM TUBE EXT STA (18:34)
[2020-12-06] MEDS: ATORVASTATIN 40 MG TAB PO SCH (21:51)
[2020-12-07 06:28] LABS: Basophils # (auto) 0.02 K/uL (0-0.2); Basophils % (auto) 0.2 %; Eosinophils # (auto) 0.19 K/uL (0-0.5); Hemoglobin 12.4 g/dL (14.0-18.0); Immature Granulocytes # (auto) 0.04 K/uL (0.00-0.02); Immature Granulocytes % (auto) 0.4 %; Lymphocytes # (auto) 1.98 K/uL (1.2-3.4); Lymphocytes % (auto) 20.7 %; Mean Corpuscular Hemoglobin 30.5 pg (25-34); Mean Corpuscular Hgb Conc 32.6 g/dL (32-36); Mean Corpuscular Volume 93.6 fL (80-100); Mean Platelet Volume 10.7 fL (7.4-10.4); Monocytes # (auto) 1.13 K/uL (0.11-0.59); Monocytes % (auto) 11.8 %; Neutrophils # (auto) 6.21 K/uL (1.4-6.5); Neutrophils % (auto) 64.9 %; Platelet Count 208 K/uL (130-400); RDW Coefficient of Variation 13.7 % (11.5-14.5); RDW Standard Deviation 46.9 fL (36.4-46.3); Red Blood Count 4.06 M/uL (4.7-6.1); White Blood Count 9.57 K/uL (4.8-10.8)
[2020-12-07 07:02] LABS: BUN Creatinine Ratio 19.2 (10-20); Calcium 8.4 mg/dl (8.5-10.1); Creatinine Clr Calc Pharmacy 37.3 ml/min; Est GFR (African American) 47.8 ml/min; Est GFR (Non-African American) 41.2 ml/min; Magnesium 2.3 mg/dl (1.8-2.4)
[2020-12-07 07:51] LABS: Potassium 4.2 mmol/L (3.5-5.1)
[2020-12-07] MEDS: INSULIN ASPART 100 UNITS/ML 3 ML PEN SC SCH ×4 (07:54→20:33)
[2020-12-07] MEDS: TORSEMIDE 20 MG TAB PO SCH ×2 (07:57→16:45)
[2020-12-07] MEDS: allopurinoL 100 MG TAB PO SCH (07:57)
[2020-12-07] MEDS: ASPIRIN 81 MG ECTAB PO SCH (07:57)
[2020-12-07] MEDS: ENOXAPARIN INJ 40 MG/0.4 ML SYR SQ SCH (07:58)
[2020-12-07] MEDS: carvediloL 25 MG TAB PO SCH ×2 (07:58→20:30)
[2020-12-07] MEDS: hydrALAZINE TAB 50 MG TAB PO SCH ×2 (07:59→20:30)
[2020-12-07] MEDS: INSULIN GLARGINE SOLOSTAR 100 UNITS/ML 3 ML PEN SC SCH (07:59)
[2020-12-07] MEDS: cloNIDine HCL 0.1 MG TAB PO SCH ×2 (08:59→20:29)
[2020-12-07 15:21] LABS: BUN Creatinine Ratio 22.6 (10-20); Calcium 8.2 mg/dl (8.5-10.1); Creatinine Clr Calc Pharmacy 41.1 ml/min; Est GFR (African American) 53.7 ml/min; Est GFR (Non-African American) 46.4 ml/min; Potassium 3.9 mmol/L (3.5-5.1)
[2020-12-07] MEDS ORDERED: hydrALAZINE TAB 50 MG TAB PO STA (15:41)
--- NOTE | 2020-12-07 15:46 | Hospitalist Progress Note ---
Date of Service December 07, 2020 Assessment & Plan (1) Hypertensive urgency: Plan: Currently asymptomatic - Initially pt's BP improved with hydralazine 50mg BID ---- but BP worsened in the afternoon - will change the hydralazine to 50mg TID - likely discharge tomorrow on hydralazine 50mg TID Chronic diastolic heart failure (EF 60%, TTE 2018), at baseline No signs and or symptoms of fluid overload Cardiology consult if condition deteriorates hx CAD status post CABG No acute cardiac symptoms Hyperlipidemia, on statin Rx Continue current treatment DM2 insulin requiring, reasonable control as of recent hemoglobin A1c of 7.13 September 2020 Continue SSI Basal insulin, ISS BG goal 1 10-1 40, carb count coverage CKD: -baseline 1.3-1.5 - Cr at baseline Past tobacco abuse PT OT eval DVT prophylaxis. Lovenox subcu Full code Patient stepdaughter requesting updates from providers. (Pop Rachelle Saini, contact #[phone].) Discussed with the daughter Admission and Anticipated Discharge Date Admission Date: December 05, 2020 Subjective Pt is a 85 y/o M with hx of CAD s/p CABG, HTN, HLD, Gout, HFpEF, IDDM, CKD (baseline Cr 1.3-1.5) admitted for HTN crisis Pt was seen at bedside: denied any CP, SOB, Abd pain, N/V or dizziness. Review of Systems Review of Systems: all negative except as indicated in HPI Physical Exam Physical Exam: General:. NAD, well developed HEENT:. Normal Conjunctiva, EOMI Lungs:. CTA, no wheezing or crackles Heart:. Normal S1, S2, no murmur Abdominal:. ND, Soft, NT MSK:. No leg edema Psych:. AAOx3, normal affect Results & Data Results & Data ([facility]) Vital Signs (Past 12 Hours) Vital Signs Temp Pulse Pulse Resp BP BP Pulse Ox 12/07/20 14:45 36.6 C 65 20 178/90 H 96 12/07/20 13:58 161/83 H 12/07/20 13:01 127/71 12/07/20 12:01 152/83 H 12/07/20 11:00 36.4 C L 61 17 148/76 H 91 12/07/20 08:25 65 12/07/20 07:19 36.5 C 67 19 174/83 H 94 Laboratory Results Short CBC 12/07/20 Range/Units 05:56 WBC 9.57 (4.8-10.8) K/uL Hgb 12.4 L (14.0-18.0) g/dL Hct 38.0 L (42-52) % Plt Count 208 (130-400) K/uL BMP 12/07/20 12/07/20 05:56 14:50 Sodium 137 136 Potassium 4.2 D 3.9 Chloride 105 105 Carbon Dioxide 27 27 BUN 29 H D 31 H Creatinine 1.51 H D 1.37 Glucose 141 H 121 H Calcium 8.4 L 8.2 L
[2020-12-07] MEDS: ATORVASTATIN 40 MG TAB PO SCH (20:30)
[2020-12-08 07:13] LABS: BUN Creatinine Ratio 25.2 (10-20); Calcium 8.1 mg/dl (8.5-10.1); Creatinine Clr Calc Pharmacy 40.5 ml/min; Est GFR (African American) 52.8 ml/min; Est GFR (Non-African American) 45.6 ml/min; Magnesium 2.2 mg/dl (1.8-2.4); Potassium 3.9 mmol/L (3.5-5.1)
[2020-12-08] MEDS: ASPIRIN 81 MG ECTAB PO SCH (08:40)
[2020-12-08] MEDS: carvediloL 25 MG TAB PO SCH (08:40)
[2020-12-08] MEDS: TORSEMIDE 20 MG TAB PO SCH (08:41)
[2020-12-08] MEDS: allopurinoL 100 MG TAB PO SCH (08:41)
[2020-12-08] MEDS: ENOXAPARIN INJ 40 MG/0.4 ML SYR SQ SCH (08:42)
[2020-12-08] MEDS: hydrALAZINE TAB 50 MG TAB PO SCH ×2 (08:42→13:22)
[2020-12-08] MEDS: INSULIN ASPART 100 UNITS/ML 3 ML PEN SC SCH ×2 (08:43→12:59)
[2020-12-08] MEDS: INSULIN GLARGINE SOLOSTAR 100 UNITS/ML 3 ML PEN SC SCH (08:43)
[2020-12-08] MEDS: cloNIDine HCL 0.1 MG TAB PO SCH (09:40)
--- NOTE | 2020-12-08 10:22 | Discharge Summary ---
Date of Service December 08, 2020 Admission HPI Per Admitting Provider CataractsHistory obtained from patient, family, and records. Medical history significant for chronic diastolic heart failure (EF 60%, TTE 2019), CAD status post CABG, hypertension, hyperlipidemia, DM2 insulin requirin g, CRI (baseline creatinine 1.3), BPH, osteoarthritis, past tobacco abuse. Patient casually had his blood pressure checked at the [facility] yesterday. SBP noted to be 200s. Usual SBP 160s as per patient/family. Patient has a blood pressure machine at home but does not check his blood pressure. Patient denies headache, chest pain, S OB, abdominal pain, blurred vision. Eyes somewhat bloodshot as per stepdaughter. Patient claims to be compliant with home medications. Usual hip pain. No inordinate OTC NSAID intake. No unusual stress at home. Patient snores soundly during sleep, occasional gasping noted. No prior sleep studies. [place] SBP [place] [facility] 220s. Patient directed to the ER for evaluation. SBP 260s upon arrival at the ER. IV Hydralazine doses and Labetalol administered at the ER. SBP currently 190s. 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 Admission Exam Per Admitting Provider GENERAL: Comfortable, morbidly obese, looks younger for stated age, no respiratory distress SKIN: Normal color, warm HEENT: Alopecia, [place] palpebral conjunctivae, no ptosis, moist buccal mucosa NECK : Supple, short neck, no tenderness CHEST : Decreased breath sounds, no tenderness HEART : RRR, no obvious murmurs ABDOMEN: Some distention, nontender EXTREMITIES : no LE swelling/tenderness, no other conspicuous deformities noted NEUROLOGIC : Coherent, no facial asymmetry, no other gross focality Principal Diagnosis HTN Crisis- HTN urgency Discharge Exam General:. NAD, well developed HEENT:. Normal Conjunctiva, EOMI Lungs:. CTA, no wheezing or crackles Heart:. Normal S1, S2, no murmur Abdominal:. ND, Soft, NT MSK:. No leg edema Psych:. AAOx3, normal affect Discharge Data Allergies Allergy/AdvReac Type Severity Reaction Status Date / Time bee venom protein (honey bee) Allergy Unknown Anaphylaxis Verified 12/04/20 23:59 amlodipine AdvReac Mild swelling Verified 12/05/20 01:46 valsartan AdvReac Mild swelling Verified 12/05/20 01:46 haemophilus b polysac AdvReac Unknown Verified 12/05/20 01:49 conj-tetanus [From Hiberix (PF)] Haemophilus B polysaccharide AdvReac Unknown Verified 12/05/20 01:49 conj w [From Hiberix (PF)] Influenza Virus Vaccines AdvReac Unknown Verified 12/05/20 01:47 nifedipine AdvReac Unknown Verified 12/05/20 01:47 Consultations 12/04/20 23:29 ED Decision to Admit Stat Hospital Course (1) Hypertensive urgency: Currently asymptomatic - BP is better controlled on hydralazine 50mg TID - will discharge on hydralazine 50mg TID with his home HTN Meds - PCP and cardiology follow up in 1-2 weeks Chronic diastolic heart failure (EF 60%, TTE 2018), at baseline No signs and or symptoms of fluid overload Cardiology consult if condition deteriorates hx CAD status post CABG No acute cardiac symptoms Hyperlipidemia, on statin Rx Continue current treatment DM2 insulin requiring, reasonable control as of recent hemoglobin A1c of 7.13 September 2020 Continue SSI Basal insulin, ISS BG goal 1 10-1 40, carb count coverage CKD: -baseline 1.3-1.5 - Cr at baseline Past tobacco abuse PT OT eval DVT prophylaxis. Lovenox subcu Full code Patient stepdaughter requesting updates from providers. (Pop Rachelle Saini, contact #[phone].) Total Time Total Time Spent Total Time Spent (In Minutes): 40 mins Discharge Plan Discharge Items Patient Disposition: Home - Self-Care Reason For Visit: HTN Crisis Discharge Diagnosis: Hypertension Crisis Condition on Discharge: Good Activity: Resume your previous activity Non-emergency contact: Primary Care Provider Call non-emergency contact if: your symptoms worsen Follow-up/Referrals: Wendy Jeffery DO [Primary Care Provider] - (Date & Time 12/13/2020 11:10 [facility] Diet: Carb Consistent or DM2 Addtl Attending Provider Instructions: Please take Hydralazine 50 mg three times a day with your current Blood pressure medications. Please follow up with your family doctor in 1-2 weeks Pending Studies at Discharge: No Stand-Alone Forms: My [facility], Smoking Cessation Medications and DC Order Prescriptions: New hydralazine 50 mg Tablet 50 mg PO TID Qty: 90 RF: 0 Continued allopurinol 100 mg tablet 100 mg PO DAILY RF: 0 Lantus Solostar U-100 Insulin 100 unit/mL (3 mL) insulin pen 20 unit SUBCUT HS RF: 0 atorvastatin 80 mg tablet 80 mg PO QPM RF: 0 carvedilol 25 mg tablet 25 mg PO BID RF: 0 clonidine HCl 0.1 mg tablet 0.1 mg PO BID RF: 0 torsemide 20 mg tablet 20 mg PO BID RF: 0 insulin aspart U-100 [Novolog Flexpen U-100 Insulin] 100 unit/mL (3 mL) insulin pen 4 unit SUBCUT BID RF: 0 meclizine 25 mg tablet 25 mg PO TID PRN (Reason: Dizziness) RF: 0 aspirin [Aspir-Low] 81 mg Tablet,Delayed Release (Dr/Ec) 162 mg PO QAM RF: 0 Discharge Orders: Discharge Order (Routine); Ordered 12/08/20 Ordered By: Ernestine Robison Admission Data Admit Date/Time: 12/07/20 15:53 Attending Provider: Ernestine Robison Admit Provider: Jason Angulo Primary Care Provider: Wendy Jeffery Other Providers: Jason Angulo
== END 2020-12-08 15:05 | disposition home or self-care (01) | DRG 305 ==
LOC: EDINP 17:41 → ED 17:41 → SUATTDRO 12-05 01:11 → 2S 12-06 06:40
DX: Z79.4 Long term (current) use of insulin; M25.551 Pain in right hip; I25.10 Atherosclerotic heart disease of native coronary artery without angina pectoris; Z83.3 Family history of diabetes mellitus; N40.0 Benign prostatic hyperplasia without lower urinary tract symptoms; N18.9 Chronic kidney disease, unspecified; M19.90 Unspecified osteoarthritis, unspecified site; Z95.1 Presence of aortocoronary bypass graft; I16.0 Hypertensive urgency; I50.32 Chronic diastolic (congestive) heart failure; I13.0 Hypertensive heart and chronic kidney disease with heart failure and stage 1 through stage 4 chronic kidney disease, or unspecified chronic kidney disease; E78.5 Hyperlipidemia, unspecified; Z87.891 Personal history of nicotine dependence; M25.552 Pain in left hip; E11.22 Type 2 diabetes mellitus with diabetic chronic kidney disease